=== PATIENT | male | born 1950 | race Caucasian/White ===

== ENCOUNTER 2016-04-11 09:38 | Emergency (ER) | payer MEDICARE, BC ==
[~2016-04-11 09:38] MED LIST: ASPIR LOW81 MG PO; LIPITOR 40MG TA40 MG PO; METOPROLOL TART25 MG PO; PLAVIX 75MG TAB75 MG PO; PRINIVIL5 MG PO
[2016-04-11 14:08] VITALS: BP 120/85
== END 2016-04-11 14:08 | disposition home or self-care (01) ==
LOC: ED 09:38
DX: R07.89 Other chest pain (principal); Z82.49 Family history of ischemic heart disease and other diseases of the circulatory system; K52.9 Noninfective gastroenteritis and colitis, unspecified
CPT/HCPCS: J1885

== ENCOUNTER → 2016-04-14 | Outpatient (CLI) | payer MEDICARE, BC | LOC: RAD 08:17 | DX: R10.13 Epigastric pain (principal); N28.1 Cyst of kidney, acquired ==

== ENCOUNTER → 2016-04-16 | Outpatient (CLI) | payer MEDICARE, BC | LOC: RAD 09:21 | DX: N13.30 Unspecified hydronephrosis (principal); R93.422 Abnormal radiologic findings on diagnostic imaging of left kidney; R93.421 Abnormal radiologic findings on diagnostic imaging of right kidney | CPT/HCPCS: Q9967 ==

== ENCOUNTER → 2016-10-06 | Outpatient (CLI) | payer MEDICARE, BC | LOC: LAB 07:12 | DX: I25.10 Atherosclerotic heart disease of native coronary artery without angina pectoris (principal); Z12.5 Encounter for screening for malignant neoplasm of prostate; E03.4 Atrophy of thyroid (acquired); R94.6 Abnormal results of thyroid function studies ==

== ENCOUNTER 2017-10-17 14:11 | Emergency (ER) | payer MEDICARE, BC ==
[~2017-10-17] VITALS: Ht 188 cm; Wt 102.3 kg
[2017-10-17] MEDS ORDERED: ADVIL 200MG TA200 MG PO (14:17)
[2017-10-17 14:43] LABS: BASO # 0.1 (0.02-0.10); EOS # 0.4 (0.04-0.40); EOS % 4.5 % (0.0-4.0); HEMATOCRIT 43.6 % (42.0-52.0); HEMOGLOBIN 14.8 g/dL (13.5-18.0); LYMPH# 1.9 (1.50-4.00); MEAN CELL VOLUME 89 fl (78-100); MEAN CORPUSCULAR HEMOGLOBIN 30 pg (27-31); MEAN CORPUSCULAR HGB CONC 34 g/dL (33-37); MEAN PLATELET VOLUME 9.8 fl (7.4-10.4); MONO # 1.1 (0.20-0.80); NEU # 5.4 (1.40-6.50); PLATELET COUNT 152 K/mm3 (130-400); RED CELL DISTRIBUTION WIDTH 12.9 % (11.5-14.5); WHITE BLOOD COUNT 8.9 K/mm3 (4.8-10.8)
[2017-10-17 14:56] LABS: POTASSIUM 4.1 mmol/L (3.6-5.0)
[2017-10-17 15:07] LABS: ALBUMIN 3.9 g/dL (3.5-5.0); BUN/CREATININE RATIO 35.7 (6.0-26.0); CALCIUM 8.8 mg/dL (8.4-10.2)
[2017-10-17 15:19] LABS: URINE APPEARANCE CLEAR; URINE BILIRUBIN NEGATIVE (NEGATIVE); URINE BLOOD NEGATIVE (NEGATIVE); URINE COLOR YELLOW; URINE GLUCOSE NEGATIVE (NEGATIVE); URINE KETONE NEGATIVE (NEGATIVE); URINE LEUKOCYTE ESTERASE NEGATIVE (NEGATIVE); URINE NITRATE NEGATIVE (NEGATIVE); URINE PROTEIN(semi-quant) NEGATIVE (NEGATIVE); URINE UROBILINOGEN NORMAL (NORMAL); URINE WBC 0-1 /hpf (0-3)
[2017-10-17] MEDS ORDERED: LORAZEPAM0.5 M1 PO (15:54)
[2017-10-17 16:09] VITALS: BP 132/79
== END 2017-10-17 16:10 | disposition home or self-care (01) ==
LOC: ED 14:11
PROVIDERS: Family Medicine
DX: R07.89 Other chest pain (principal); F41.9 Anxiety disorder, unspecified; I25.10 Atherosclerotic heart disease of native coronary artery without angina pectoris; Z95.5 Presence of coronary angioplasty implant and graft; I25.2 Old myocardial infarction

== ENCOUNTER → 2017-11-10 | Outpatient (CLI) | payer MEDICARE, BC ==
[2017-10-17 16:09] VITALS: BP 132/79
[~2017-11-10] MED LIST changes: +ADVIL 200MG TA200 MG PO; +LORAZEPAM0.5 M1 PO
[2017-11-10 07:40] LABS: EOS # 0.3 (0.04-0.40); EOS % 3.9 % (0.0-4.0); HEMATOCRIT 46.1 % (42.0-52.0); HEMOGLOBIN 15.6 g/dL (13.5-18.0); LYMPH# 1.8 (1.50-4.00); MEAN CELL VOLUME 89 fl (78-100); MEAN CORPUSCULAR HEMOGLOBIN 30 pg (27-31); MEAN CORPUSCULAR HGB CONC 34 g/dL (33-37); MEAN PLATELET VOLUME 9.8 fl (7.4-10.4); MONO # 0.9 (0.20-0.80); NEU # 5.3 (1.40-6.50); PLATELET COUNT 159 K/mm3 (130-400); RED BLOOD COUNT 5.18 M/mm3 (4.20-5.60); WHITE BLOOD COUNT 8.5 K/mm3 (4.8-10.8)
[2017-11-10 07:51] LABS: ALBUMIN 4.2 g/dL (3.5-5.0); BUN/CREATININE RATIO 46.2 (6.0-26.0); CALCIUM 8.9 mg/dL (8.4-10.2); POTASSIUM 4.5 mmol/L (3.6-5.0); TOTAL BILIRUBIN 1.3 mg/dL (0.2-1.3); TOTAL PROTEIN 7.3 g/dL (6.3-8.2)
== END ==
LOC: LAB 07:16
PROVIDERS: Physician Assistant
DX: Z12.5 Encounter for screening for malignant neoplasm of prostate (principal); E03.9 Hypothyroidism, unspecified; E78.00 Pure hypercholesterolemia, unspecified; E66.9 Obesity, unspecified; B19.20 Unspecified viral hepatitis C without hepatic coma; I25.10 Atherosclerotic heart disease of native coronary artery without angina pectoris

== ENCOUNTER → 2019-01-11 | Outpatient (CLI) | payer MEDICARE, BC ==
[2019-01-11 06:50] LABS: EOS # 0.3 (0.04-0.40); EOS % 3.6 % (0.0-4.0); HEMATOCRIT 47.4 % (42.0-52.0); HEMOGLOBIN 15.5 g/dL (13.5-18.0); LYMPH# 1.7 (1.50-4.00); MEAN CELL VOLUME 90 fl (78-100); MEAN CORPUSCULAR HEMOGLOBIN 29 pg (27-31); MEAN CORPUSCULAR HGB CONC 33 g/dL (33-37); MEAN PLATELET VOLUME 9.6 fl (7.4-10.4); NEU # 5.9 (1.40-6.50); PLATELET COUNT 186 K/mm3 (130-400); RED BLOOD COUNT 5.27 M/mm3 (4.20-5.60); WHITE BLOOD COUNT 9.1 K/mm3 (4.8-10.8)
[2019-01-11 07:59] LABS: POTASSIUM 4.8 mmol/L (3.5-5.1)
[2019-01-11 08:00] LABS: ALBUMIN 4.2 g/dL (3.4-4.8)
[2019-01-11 08:01] LABS: CALCIUM 9.4 mg/dL (8.3-10.5)
[2019-01-11 08:02] LABS: TOTAL PROTEIN 7.7 g/dL (6.2-8.1)
[2019-01-11 08:04] LABS: TOTAL BILIRUBIN 1.4 mg/dL (0.2-1.2)
== END ==
LOC: LAB 06:27
PROVIDERS: Physician Assistant
DX: Z00.00 Encounter for general adult medical examination without abnormal findings (principal); Z12.5 Encounter for screening for malignant neoplasm of prostate; E78.00 Pure hypercholesterolemia, unspecified; I25.10 Atherosclerotic heart disease of native coronary artery without angina pectoris; N52.9 Male erectile dysfunction, unspecified; B19.20 Unspecified viral hepatitis C without hepatic coma

== ENCOUNTER 2019-07-23 09:36 | Emergency (ER) | payer MEDICARE, BC ==
[~2019-07-23] VITALS: Ht 188 cm; Wt 104.5 kg
[2019-07-23] MEDS ORDERED: NORCO 325 MG-51 TA1 PO (11:15)
[2019-07-23 11:39] VITALS: BP 139/68
== END 2019-07-23 11:50 | disposition home or self-care (01) ==
LOC: ED 09:36
DX: S20.212A Contusion of left front wall of thorax, initial encounter (principal); S30.0XXA Contusion of lower back and pelvis, initial encounter; V97.89XA Other air transport accidents, not elsewhere classified, initial encounter
CPT/HCPCS: J1885

== ENCOUNTER 2019-10-08 08:18 | Emergency (ER) | payer MEDICARE, BC ==
[~2019-10-08 08:18] MED LIST changes: +NORCO 325 MG-51 TA1 PO
[2019-10-08] MEDS ORDERED: NORCO 325 MG-51 TA1 PO (10:18)
[2019-10-08 10:34] VITALS: BP 142/82
== END 2019-10-08 10:37 | disposition home or self-care (01) ==
LOC: ED 08:18
DX: S42.001A Fracture of unspecified part of right clavicle, initial encounter for closed fracture (principal); I25.10 Atherosclerotic heart disease of native coronary artery without angina pectoris; Z79.82 Long term (current) use of aspirin; Z95.5 Presence of coronary angioplasty implant and graft; V28.4XXA Motorcycle driver injured in noncollision transport accident in traffic accident, initial encounter; Y93.55 Activity, bike riding; Y92.480 Sidewalk as the place of occurrence of the external cause

== ENCOUNTER → 2020-03-18 | Outpatient (CLI) | payer MEDICARE, BC ==
[2020-03-18 08:08] LABS: BASO # 0.1 (0.02-0.10); EOS # 0.3 (0.04-0.40); EOS % 2.6 % (0.0-4.0); HEMATOCRIT 49.2 % (42.0-52.0); HEMOGLOBIN 16.2 g/dL (13.5-18.0); LYMPH# 3.7 (1.50-4.00); MEAN CELL VOLUME 87 fl (78-100); MEAN CORPUSCULAR HEMOGLOBIN 29 pg (27-31); MEAN CORPUSCULAR HGB CONC 33 g/dL (33-37); MEAN PLATELET VOLUME 10.1 fl (7.4-10.4); MONO # 0.9 (0.20-0.80); NEU # 4.5 (1.40-6.50); PLATELET COUNT 150 K/mm3 (130-400); RED BLOOD COUNT 5.67 M/mm3 (4.20-5.60); RED CELL DISTRIBUTION WIDTH 13.7 % (11.5-14.5); WHITE BLOOD COUNT 9.4 K/mm3 (4.8-10.8)
[2020-03-18 08:14] LABS: ALBUMIN 4.3 g/dL (3.4-4.8); POTASSIUM 4.5 mmol/L (3.5-5.1)
[2020-03-18 08:15] LABS: CALCIUM 8.9 mg/dL (8.3-10.5)
[2020-03-18 08:17] LABS: TOTAL PROTEIN 7.4 g/dL (6.2-8.1)
[2020-03-18 08:18] LABS: TOTAL BILIRUBIN 1.5 mg/dL (0.2-1.2)
== END ==
LOC: LAB 07:33
PROVIDERS: Physician Assistant
DX: Z00.00 Encounter for general adult medical examination without abnormal findings (principal); Z12.5 Encounter for screening for malignant neoplasm of prostate; E78.00 Pure hypercholesterolemia, unspecified; R79.89 Other specified abnormal findings of blood chemistry

== ENCOUNTER 2021-02-18 18:31 | Emergency (ER) | payer MEDICARE, BC ==
[2021-02-18 18:37] VITALS: BP 128/90
[2021-02-18 18:51] LABS: HEMATOCRIT 48.5 % (42.0-52.0); HEMOGLOBIN 16.3 g/dL (13.5-18.0); MEAN CELL VOLUME 90 fl (78-100); MEAN CORPUSCULAR HEMOGLOBIN 30 pg (27-31); MEAN CORPUSCULAR HGB CONC 34 g/dL (33-37); MEAN PLATELET VOLUME 9.4 fl (7.4-10.4); PLATELET COUNT 169 K/mm3 (130-400); RED BLOOD COUNT 5.39 M/mm3 (4.20-5.60); RED CELL DISTRIBUTION WIDTH 12.2 % (11.5-14.5); WHITE BLOOD COUNT 17.8 K/mm3 (4.8-10.8)
[2021-02-18 19:10] LABS: ALBUMIN 4.2 g/dL (3.4-4.8); POTASSIUM 3.9 mmol/L (3.5-5.1); SODIUM 141 mmol/L (136-145)
[2021-02-18 19:11] LABS: CALCIUM 9.1 mg/dL (8.3-10.5)
[2021-02-18 19:12] LABS: GLUCOSE 153 mg/dL (75-110); TOTAL PROTEIN 7.4 g/dL (6.2-8.1)
[2021-02-18 19:13] LABS: CARBON DIOXIDE 19 mmol/L (23-31)
[2021-02-18 19:14] LABS: TOTAL BILIRUBIN 1.1 mg/dL (0.2-1.2)
[2021-02-18 19:18] LABS: AST-SGOT 28 U/L (5-34)
[2021-02-18 19:19] LABS: ALT/SGPT 40 U/L (0-55)
[2021-02-18 19:23] LABS: D-DIMER 0.91 mg/L FEU (0.15-0.50)
[2021-02-18 19:31] LABS: TROPONIN-I < 0.03 ng/mL (<0.030)
[2021-02-18 20:04] LABS: LYMPHOCYTE 22 % (20-51); MONOCYTE 11 % (3-10); NEUTROPHILS 64 % (42-75)
[2021-02-18 20:25] LABS: URINE APPEARANCE CLEAR; URINE COLOR YELLOW; URINE PROTEIN(semi-quant) TRACE mg/dL (NEGATIVE)
[2021-02-18 20:26] LABS: URINE BILIRUBIN NEGATIVE (NEGATIVE); URINE BLOOD NEGATIVE (NEGATIVE); URINE GLUCOSE 50 mg/dL mg/dL (NEGATIVE); URINE KETONE NEGATIVE (NEGATIVE); URINE LEUKOCYTE ESTERASE NEGATIVE (NEGATIVE); URINE MUCUS PRESENT (NOT PRESENT); URINE NITRATE NEGATIVE (NEGATIVE); URINE UROBILINOGEN NORMAL (NORMAL)
[2021-02-18] MEDS ORDERED: MORGIDOX 1X100100 MG PO (20:38)
== END 2021-02-18 20:48 | disposition home or self-care (01) ==
LOC: ED 18:31
PROVIDERS: Nurse Practitioner
DX: D72.829 Elevated white blood cell count, unspecified (principal); R05.9 Cough, unspecified; J34.89 Other specified disorders of nose and nasal sinuses; I25.10 Atherosclerotic heart disease of native coronary artery without angina pectoris; E78.00 Pure hypercholesterolemia, unspecified; E66.9 Obesity, unspecified; Z20.822 Contact with and (suspected) exposure to COVID-19; Z79.899 Other long term (current) drug therapy; Z79.82 Long term (current) use of aspirin

== ENCOUNTER → 2021-10-10 | Outpatient (CLI) | payer MEDICARE, BC ==
[~2021-10-10] MED LIST changes: +MORGIDOX 1X100100 MG PO
[2021-10-10 09:09] LABS: BASO # 0.05 K/mm3 (0.02-0.10); EOS # 0.29 K/mm3 (0.04-0.40); EOS % 2.7 % (0.0-4.0); HEMATOCRIT 49.5 % (42.0-52.0); HEMOGLOBIN 16.9 g/dL (13.5-18.0); LYMPH# 3.28 K/mm3 (1.50-4.00); MEAN CELL VOLUME 89 fl (78-100); MEAN CORPUSCULAR HEMOGLOBIN 30 pg (27-31); MEAN CORPUSCULAR HGB CONC 34 g/dL (33-37); MEAN PLATELET VOLUME 9.7 fl (7.4-10.4); MONO # 1.45 K/mm3 (0.20-0.80); NEU # 5.53 K/mm3 (1.40-6.50); PLATELET COUNT 166 K/mm3 (130-400); RED BLOOD COUNT 5.57 M/mm3 (4.20-5.60); RED CELL DISTRIBUTION WIDTH 12.5 % (11.5-14.5); WHITE BLOOD COUNT 10.7 K/mm3 (4.8-10.8)
[2021-10-10 09:10] LABS: POTASSIUM 4.1 mmol/L (3.5-5.1)
[2021-10-10 09:11] LABS: ALBUMIN 4.2 g/dL (3.4-4.8)
[2021-10-10 09:12] LABS: CALCIUM 9.4 mg/dL (8.3-10.5)
[2021-10-10 09:13] LABS: TOTAL PROTEIN 7.3 g/dL (6.2-8.1)
[2021-10-10 09:15] LABS: TOTAL BILIRUBIN 1.5 mg/dL (0.2-1.2)
== END ==
LOC: LAB 08:37
PROVIDERS: Physician Assistant
DX: Z00.00 Encounter for general adult medical examination without abnormal findings (principal); Z12.5 Encounter for screening for malignant neoplasm of prostate; Z13.29 Encounter for screening for other suspected endocrine disorder; I25.10 Atherosclerotic heart disease of native coronary artery without angina pectoris; E78.00 Pure hypercholesterolemia, unspecified; R79.89 Other specified abnormal findings of blood chemistry

== ENCOUNTER → 2022-02-25 | Outpatient (CLI) | payer MEDICARE, BC ==
[2022-02-25 08:37] LABS: POTASSIUM 3.9 mmol/L (3.5-5.1)
[2022-02-25 08:38] LABS: CALCIUM 8.9 mg/dL (8.3-10.5)
[2022-02-25 08:39] LABS: TOTAL PROTEIN 7.2 g/dL (6.2-8.1)
[2022-02-25 08:41] LABS: TOTAL BILIRUBIN 1.4 mg/dL (0.2-1.2)
[2022-02-25 08:44] LABS: HEMATOCRIT 47.6 % (42.0-52.0); HEMOGLOBIN 15.9 g/dL (13.5-18.0); MEAN CELL VOLUME 90 fl (78-100); MEAN CORPUSCULAR HEMOGLOBIN 30 pg (27-31); MEAN CORPUSCULAR HGB CONC 33 g/dL (33-37); MEAN PLATELET VOLUME 9.9 fl (7.4-10.4); PLATELET COUNT 164 K/mm3 (130-400); RED BLOOD COUNT 5.31 M/mm3 (4.20-5.60); RED CELL DISTRIBUTION WIDTH 12.5 % (11.5-14.5); WHITE BLOOD COUNT 12.1 K/mm3 (4.8-10.8)
[2022-02-25 08:59] LABS: PARTIAL THROMBOPLASTIN TIME 26.2 SECONDS (21.0-32.0); PROTHROMBIN TIME 10.1 SECONDS (9.0-12.0)
[2022-02-25 11:11] LABS: LYMPHOCYTE 28 % (20-51); MONOCYTE 12 % (3-10); NEUTROPHILS 59 % (42-75)
== END ==
LOC: LAB 08:09
PROVIDERS: Physician Assistant
DX: Z01.812 Encounter for preprocedural laboratory examination (principal); Z01.810 Encounter for preprocedural cardiovascular examination; N28.89 Other specified disorders of kidney and ureter; I71.20 Thoracic aortic aneurysm, without rupture, unspecified; I25.10 Atherosclerotic heart disease of native coronary artery without angina pectoris

== ENCOUNTER → 2023-04-23 | Outpatient (CLI) | payer MEDICARE, BC ==
[2023-04-23 07:27] LABS: BASO # 0.06 K/mm3 (0.02-0.10); EOS % 2.7 % (0.0-4.0); HEMOGLOBIN 15.3 g/dL (13.5-18.0); LYMPH# 2.98 K/mm3 (1.50-4.00); MEAN CELL VOLUME 89 fl (78-100); MEAN CORPUSCULAR HEMOGLOBIN 30 pg (27-31); MEAN CORPUSCULAR HGB CONC 33 g/dL (33-37); MEAN PLATELET VOLUME 9.8 fl (7.4-10.4); MONO # 1.17 K/mm3 (0.20-0.80); NEU # 6.59 K/mm3 (1.40-6.50); PLATELET COUNT 165 K/mm3 (130-400); RED BLOOD COUNT 5.18 M/mm3 (4.20-5.60); RED CELL DISTRIBUTION WIDTH 12.5 % (11.5-14.5); WHITE BLOOD COUNT 11.2 K/mm3 (4.8-10.8)
[2023-04-23 07:32] LABS: ALBUMIN 4.3 g/dL (3.4-4.8)
[2023-04-23 07:33] LABS: CALCIUM 8.8 mg/dL (8.3-10.5)
[2023-04-23 07:34] LABS: TOTAL PROTEIN 7.4 g/dL (6.2-8.1)
[2023-04-23 07:36] LABS: TOTAL BILIRUBIN 1.3 mg/dL (0.2-1.2)
[2023-04-23 23:41] LABS: CREATININE OTHER SOURCE 94 mg/dL (47-110)
== END ==
LOC: LAB 07:07
PROVIDERS: Internal Medicine Nephrology
DX: N18.31 Chronic kidney disease, stage 3a (principal); R73.9 Hyperglycemia, unspecified

== ENCOUNTER → 2023-04-28 | Outpatient (CLI) | payer MEDICARE, BC | LOC: RAD 09:25 | DX: N28.1 Cyst of kidney, acquired (principal); C64.2 Malignant neoplasm of left kidney, except renal pelvis; Z90.5 Acquired absence of kidney ==

== ENCOUNTER 2023-10-02 20:11 | Emergency (ER) | payer MEDICARE, BC ==
[~2023-10-02] VITALS: Ht 188 cm; Wt 111.8 kg
[2023-10-02 21:22] LABS: HEMATOCRIT 44.8 % (42.0-52.0); MEAN CELL VOLUME 87 fl (78-100); MEAN CORPUSCULAR HEMOGLOBIN 29 pg (27-31); MEAN CORPUSCULAR HGB CONC 34 g/dL (33-37); MEAN PLATELET VOLUME 9.3 fl (7.4-10.4); PLATELET COUNT 180 K/mm3 (130-400); RED BLOOD COUNT 5.14 M/mm3 (4.20-5.60); RED CELL DISTRIBUTION WIDTH 12.6 % (11.5-14.5)
[2023-10-02 21:37] LABS: LYMPHOCYTE 27 % (20-51); METAMYELOCYTE 1 % (0-0); MONOCYTE 15 % (3-10); NEUTROPHILS 55 % (42-75)
[2023-10-02] MEDS ORDERED: PREDNISONE20 M1 PO (22:25)
[2023-10-02] MEDS ORDERED: GUAIFEN-CODEINE5 ML PO (22:25)
[2023-10-02] MEDS ORDERED: AZITHROMYCIN 250MGPK PO (22:25)
[2023-10-02] MEDS ORDERED: dexAMETHasone 4 MG TAB PO ONE (22:30)
[2023-10-02] MEDS ORDERED: Azithromycin 250 MG TAB PO ONE (22:30)
[2023-10-02] MEDS ORDERED: guaiFENesin/Codeine Oral Soln 100-10 MG/5 ML 5 ML UD PO ONE (22:30)
[2023-10-02 22:35] VITALS: BP 136/100
== END 2023-10-02 22:38 | disposition home or self-care (01) ==
LOC: ED 20:11
PROVIDERS: Family Medicine
DX: J40 Bronchitis, not specified as acute or chronic (principal)

== ENCOUNTER → 2024-04-11 | Outpatient (CLI) | payer MEDICARE, BC ==
[~2024-04-11] MED LIST changes: +AZITHROMYCIN 250MGPK PO; +GUAIFEN-CODEINE5 ML PO; +PREDNISONE20 M1 PO
[2024-04-11 16:23] LABS: HEMATOCRIT 47.9 % (42.0-52.0); HEMOGLOBIN 15.8 g/dL (13.5-18.0); MEAN CELL VOLUME 89 fl (78-100); MEAN CORPUSCULAR HEMOGLOBIN 29 pg (27-31); MEAN CORPUSCULAR HGB CONC 33 g/dL (33-37); MEAN PLATELET VOLUME 9.4 fl (7.4-10.4); PLATELET COUNT 196 K/mm3 (130-400); RED BLOOD COUNT 5.38 M/mm3 (4.20-5.60); RED CELL DISTRIBUTION WIDTH 12.4 % (11.5-14.5); WHITE BLOOD COUNT 11.9 K/mm3 (4.8-10.8)
[2024-04-11 16:29] LABS: ALBUMIN 4.3 g/dL (3.4-4.8)
[2024-04-11 16:30] LABS: CALCIUM 9.3 mg/dL (8.3-10.5)
[2024-04-11 16:31] LABS: TOTAL PROTEIN 7.5 g/dL (6.2-8.1)
[2024-04-11 16:33] LABS: TOTAL BILIRUBIN 0.9 mg/dL (0.2-1.2)
[2024-04-11 16:47] LABS: LYMPHOCYTE 29 % (20-51); MONOCYTE 10 % (3-10); NEUTROPHILS 59 % (42-75)
== END ==
LOC: LAB 15:57
PROVIDERS: Physician Assistant
DX: Z12.5 Encounter for screening for malignant neoplasm of prostate (principal); E78.00 Pure hypercholesterolemia, unspecified; K90.9 Intestinal malabsorption, unspecified